=== PATIENT | female | born 1970 | race Caucasian/White ===

== ENCOUNTER 2020-05-19 05:00 | Emergency (ER) | payer MEDICAID ==
[~2020-05-19] VITALS: Ht 160 cm; Wt 175.0 kg
[2020-05-19] MEDS ORDERED: diphenhydrAMINE 50 mg/ml inj IV ONE (05:20)
[2020-05-19 05:51] LABS: BASOPHILS % (AUTO) 0.9 % (0-1); EOSINOPHILS # (AUTO) 0.1 X10'3 (0-0.9); HEMOGLOBIN 11.8 g/dl (12.0-16.0); MEAN CORPUSCULAR VOLUME 81.4 FL (78-98); MONOCYTES # (AUTO) 0.4 X10'3 (0-0.9); NEUTROPHILS # (AUTO) 2.4 X10'3 (1.8-7.7); NEUTROPHILS % (AUTO) 69.1 % (42-75); PLATELET COUNT 120 X10'3 (140-440); RED BLOOD COUNT 4.43 X10'6 (4.20-5.60)
[2020-05-19 05:52] LABS: EOSINOPHILS % (AUTO) 1.9 % (0-6); LYMPHOCYTES # (AUTO) 0.5 X10'3 (1.1-4.8); LYMPHOCYTES % (AUTO) 15.3 % (21-51); MEAN CORPUSCULAR HEMOGLOBIN 26.7 PG (27.0-31.0); MEAN CORPUSCULAR HGB CONC 32.9 g/dL (33.0-36.5); MEAN PLATELET VOLUME 8.8 FL (7.4-10.4); MONOCYTES % (AUTO) 12.8 % (2-12); RED CELL DISTRIBUTION WIDTH 16.1 % (11.5-14.5); WHITE BLOOD COUNT 3.4 X10'3 (4.5-11.0)
[2020-05-19 05:58] LABS: CLARITY,URINE CLEAR (Clear); COLOR,URINE YELLOW (Yellow); GLUCOSE, URINE NEGATIVE (Neg); KETONES,URINE NEGATIVE (Neg); LEUKOCYTE ESTERASE ,URINE NEGATIVE (Neg); NITRITES, URINE POSITIVE (Neg); OCCULT BLOOD,URINE SMALL (Neg); PROTEIN,URINE NEGATIVE (Neg); UROBILINOGEN,URINE 0.2 E.U/dL (0.2-1.0)
[2020-05-19 05:59] LABS: UA COLLECTION TYPE CLN CATCH MIDSTREAM
[2020-05-19 06:04] LABS: MUCUS STRANDS FEW /LPF (Neg); RBC,URINE 0-2 /HPF (0-2); SQUAMOUS EPITHELIAL CELL,UR MODERATE /LPF (FEW)
[2020-05-19 06:05] LABS: BACTERIA,URINE 2+ /HPF (Neg)
[2020-05-19 06:05] LABS: ALANINE AMINOTRANSFERASE 47 U/L (12-78); ALBUMIN 3.1 G/DL (3.4-5.0); ALBUMIN/GLOBULIN RATIO 0.8 (1.1-1.5); ALKALINE PHOSPHATASE 87 IU/L (46-116); ANION GAP 9 (8-16); ASPARTATE AMINO TRANSFERASE 35 U/L (10-37); BILIRUBIN,TOTAL 0.1 MG/DL (0.1-1.0); BLOOD UREA NITROGEN 11 MG/DL (7-18); BUN/CREATININE RATIO 16.2 (6.6-38.0); CALCIUM 8.7 MG/DL (8.5-10.1); CHLORIDE 103 MMOL/L (99-107); CREATININE 0.68 MG/DL (0.40-0.90); GLUCOSE 110 MG/DL (70-104); POTASSIUM 3.6 MMOL/L (3.5-5.1); SODIUM 137 MMOL/L (135-145); TOTAL CARBON DIOXIDE 24.8 MMOL/L (24-32); TOTAL PROTEIN 6.8 G/DL (6.4-8.2); eGFR > 90 ML/MIN
[2020-05-19 06:41] VITALS: BP 133/75
[2020-05-19] MEDS ORDERED: TIOT18CA3 INH (06:52)
[2020-05-19] MEDS ORDERED: LORA10CA PO (06:52)
[2020-05-19] MEDS ORDERED: ALB0.5UD IH (06:52)
[2020-05-19] MEDS ORDERED: FERR-119 PO (06:53)
[2020-05-19] MEDS ORDERED: QUET-1 PO (06:53)
[2020-05-19] MEDS ORDERED: valacyclovir 500mg tablet PO ONE (07:00)
[2020-05-19] MEDS ORDERED: VALA100031 PO (07:18)
== END 2020-05-19 07:35 | disposition home or self-care (01) ==
LOC: ER 05:01
DX: B01.9 Varicella without complication (principal); F17.210 Nicotine dependence, cigarettes, uncomplicated
CPT/HCPCS: 36415; 80053; 81001; 85025; 87077; 87088; 87186; 96374; 99283; J1200